=== PATIENT | female | born 1970 | race Caucasian/White ===

== ENCOUNTER 2016-05-27 15:04 | Inpatient (IN) | payer BC ==
--- NOTE | 2016-05-27 15:46 | C.PDOC ---
History Of Present Illness 46 y/o F c no PMHx p/w cough x 3 weeks. Cough nonproductive, associated with body aches, rhinorrhea, headache. Patient finished course of Levofloxacin as outpatient but no improvement. Instructed to come to ER for further evaluation. Time Seen by Provider: 05/27/16 15:41 Chief Complaint (Nursing): Shortness Of Breath Past Medical History Reviewed: Historical Data, Nursing Documentation, Vital Signs Vital Signs: Last Vital Signs Temp 98.1 F 05/27/16 15:37 Pulse 113 H 05/27/16 15:37 Resp 22 05/27/16 15:37 BP 127/84 05/27/16 15:37 Pulse Ox 97 05/27/16 16:52 - Medical History PMH: No Chronic Diseases Other Surgeries: tubal ligation Family History: States: Unknown Family Hx - Social History Hx Tobacco Use: No Hx Alcohol Use: No Hx Substance Use: No Review Of Systems Except As Marked, All Systems Reviewed And Found Negative. Constitutional: Negative for: Fever Cardiovascular: Negative for: Chest Pain Physical Exam - Physical Exam Additional Physical Exam Comments: Constitutional: No acute distress. Head: Normocephalic. Atraumatic. Eyes: PERRL. ENT: Moist mucous membranes. Neck: Supple. Cardiovascular: Tachycardic. Radial pulse 2+ bilaterally. Chest: No tenderness. Respiratory: Rhonchi bilaterally. GI: Soft. Nontender. Nondistended. Back: No CVA tenderness. Musculoskeletal: No tenderness or swelling of extremities. Skin: No rash. Neurologic: Alert, no focal deficit. ED Course And Treatment - Laboratory Results Result Diagrams: 05/27/16 17:08 05/27/16 17:08 O2 Sat by Pulse Oximetry: 97 (ra) Pulse Ox Interpretation: Normal Medical Decision Making Medical Decision Making: Chest X-Ray, Read by Yuliet Ambrocio MD: FINDINGS: Examination limited by habitus and patient obliquity. The patient's chin obscures evaluation of the right lung apex. LUNGS: No focal consolidation. Please note that chest x-ray has limited sensitivity for the detection of pulmonary masses. PLEURA: No significant pleural effusion identified. No definite pneumothorax . CARDIOVASCULAR: The cardiomediastinal silhouette appears within normal limits of size. OSSEOUS STRUCTURES: No acute osseous abnormality identified. VISUALIZED UPPER ABDOMEN: Unremarkable. OTHER FINDINGS: None. IMPRESSION: No focal consolidation, significant pleural effusion, or definite pneumothorax identified. Albuterol administered without improvement. Started on Ceftriaxone and azithromycin. Dr. Shafer recommends admission to his service for respiratory infection, failure of outpatient therapy, clinical pneumonia. Disposition Discussed With : Chris Shafer Jr. Doctor Will See Patient In The: Hospital - Disposition Disposition: HOSPITALIZED Disposition Time: 17:30 Condition: GUARDED - POA Core Measure Indicators: Pneumonia - Clinical Impression Clinical Impression: Pneumonia
[2016-05-27] MEDS ORDERED: Sodium Chloride 0.9% 1,000 ML IV STA (16:06)
[2016-05-27] MEDS ORDERED: Albuterol-Ipratrop 3 mg / 0.5 (3 ml) UD IH STA (16:07)
--- NOTE | 2016-05-27 16:33 | RAD ---
HISTORY: cough, r/o PNA COMPARISON: None available. TECHNIQUE: Chest PA and lateral FINDINGS: Examination limited by habitus and patient obliquity. The patient's chin obscures evaluation of the right lung apex. LUNGS: No focal consolidation. Please note that chest x-ray has limited sensitivity for the detection of pulmonary masses. PLEURA: No significant pleural effusion identified. No definite pneumothorax . CARDIOVASCULAR: The cardiomediastinal silhouette appears within normal limits of size. OSSEOUS STRUCTURES: No acute osseous abnormality identified. VISUALIZED UPPER ABDOMEN: Unremarkable. OTHER FINDINGS: None. IMPRESSION: No focal consolidation, significant pleural effusion, or definite pneumothorax identified.
[2016-05-27 17:12] LABS: BASO % 0.1 % (0.0-2.0); EOS # 0.2 K/uL (0.0-0.7); EOS % 3.4 % (0.0-4.0); HEMATOCRIT 41.3 % (34.0-47.0); LYMPH % 27.3 % (20.0-40.0); MEAN CELL VOLUME 86.3 fL (81.0-99.0); MEAN CORPUSCULAR HEMOGLOBIN 28.7 pg (27.0-31.0); MEAN CORPUSCULAR HGB CONC 33.2 g/dL (33.0-37.0); MEAN PLATELET VOLUME 8.9 fL (7.2-11.7); MONO # 0.7 K/uL (0.0-0.8); MONO % 9.7 % (0.0-10.0); RED CELL DISTRIBUTION WIDTH 14.8 % (11.5-14.5); WHITE BLOOD COUNT 7.2 K/uL (4.8-10.8)
[2016-05-27] MEDS ORDERED: Sodium Chloride 0.9% 1,000 ML ONE (17:14)
[2016-05-27] MEDS ORDERED: Albuterol-Ipratrop 3 mg / 0.5 (3 ml) UD ONE (17:19)
[2016-05-27 17:20] LABS: CHLORIDE 99 mmol/L (98-107)
[2016-05-27 17:21] LABS: POTASSIUM 4.2 mmol/L (3.6-5.2); SODIUM 134 mmol/L (132-148)
[2016-05-27 17:23] LABS: ALB/GLOB RATIO 1.1 (1.0-2.1); ALKALINE PHOSPHATASE 79 U/L (38-126); AST/SGOT 37 U/L (14-36); BILIRUBIN,TOTAL 0.8 mg/dL (0.2-1.3); BLOOD UREA NITROGEN 12 mg/dL (7-17); CARBON DIOXIDE 23 mmol/L (22-30); GFR AFRICAN-AMERICAN > 60; GLUCOSE,RANDOM 108 mg/dL (65-105); TOTAL PROTEIN 7.4 g/dL (6.3-8.3)
[2016-05-27 17:24] LABS: ALT/SGPT 32 U/L (9-52); CALCIUM 9.4 mg/dl (8.6-10.4)
[2016-05-27] MEDS ORDERED: Azithromycin 500 MG in Sodium Chloride 0.9% 250 ML IVPB STA (17:41)
[2016-05-27] MEDS ORDERED: cefTRIAXone IV 1 gm in Dextros 50 ML IVPB ONE (17:51)
[2016-05-27] MEDS: Fluticasone-Salmeterol 250-50mcg Diskus INH SCH (19:51)
--- NOTE | 2016-05-27 19:51 | CP.PCM.HP ---
History of Present Illness - History of Present Illness History of Present Illness: Internal medicine H & P for Dr. Citlalli Tolbert, PGY-1 Pt S & E at bedside. 46F w/PMH sig for Chronic UTIs admitted to hospital after failing outpatient treatment for acute bronchitis symptoms of cough, fevers, chills x 3 wks. Pt reports flying to [place] approx 1 mo ago, after returning home pt was not feeling well- went to PMD - given Levaquin and Symbicort without relief of symptoms. Pt reports symptoms continued, was referred to ED by PMD for further medical intervention. Admits to non productive cough, subjective fevers, chills , diaphoresis, headache, hoarse voice, poor appetite, myaglais, urinary incontinence with cough, sinus congestion. Denies N/V, CP, abdominal pain, sore throat, changes in vision, changes in bladder or bowel habits, hematuria, hematochezia, numbness or tingling of lower extremities, rashes, rhinorrhea. PMH: Chronic UTIs, hx sepsis, borderline DM PSH: uterine ablation due to AUB, amenorrhea x 3 yrs All: Denies SH: Admits to ETOH use #1 drink/6 mos, Denies tobacco/illicit drug use PMD: Soni Present on Admission - Present on Admission Any Indicators Present on Admission: No History of DVT/PE: No History of Uncontrolled Diabetes: No Urinary Catheter: No Decubitus Ulcer Present: No Review of Systems - Review of Systems All systems: reviewed and no additional remarkable complaints except - Constitutional Constitutional: Chills, Fever, Headache, Lethargy, Malaise, Weakness - EENT Eyes: absent: Change in Vision, Diplopia Ears: absent: Dizziness Nose/Mouth/Throat: Nasal Congestion, Sinus Pain, Change in Voice, Hoarsness. absent: Sore Throat - Cardiovascular Cardiovascular: absent: Chest Pain, Leg Edema, Palpitations - Respiratory Respiratory: Cough, Chest Congestion, Excessive Mucous Production, Change in Mucous Color. absent: Wheezing - Gastrointestinal Gastrointestinal: Vomiting. absent: Abdominal Pain, Constipation, Diarrhea, Hematemesis, Hematochezia, Nausea - Genitourinary Genitourinary: Urinary Incontinence. absent: Change in Urinary Stream, Dysuria , Hematuria - Reproductive: Female Reproductive:Female: Amenorrhea - Musculoskeletal Musculoskeletal: Myalgias. absent: Numbness, Tingling - Integumentary Integumentary: absent: Rash - Neurological Neurological: Headaches, Weakness. absent: Dizziness, Numbness, Tingling Past Patient History - Infectious Disease Hx of Infectious Diseases: None - Past Social History Smoking Status: Never Smoked - PSYCHIATRIC Hx Substance Use: No - SURGICAL HISTORY Hx Surgeries: Yes Hx Tubal Ligation: Yes Meds Allergies/Adverse Reactions: Allergies Allergy/AdvReac Type Severity Reaction Status Date / Time No Known Allergies Allergy Verified 05/27/16 15:32 Physical Exam - Constitutional Appears: Non-toxic, No Acute Distress - Head Exam Head Exam: ATRAUMATIC, NORMAL INSPECTION, NORMOCEPHALIC - Eye Exam Eye Exam: EOMI, Normal appearance, PERRL Pupil Exam: NORMAL ACCOMODATION, PERRL - ENT Exam ENT Exam: Mucous Membranes Moist, Normal Exam - Neck Exam Neck exam: Positive for: Full Rom, Normal Inspection. Negative for: Lymphadenopathy, Tenderness - Respiratory Exam Respiratory Exam: Wheezes (mild B/L), NORMAL BREATHING PATTERN. absent: Accessory Muscle Use, Chest Wall Tenderness, Decreased Breath Sounds, Clear to Auscultation Bilateral, Rales, Rhonchi, Respiratory Distress, Stridor Additional comments: getting breathing treatment - Cardiovascular Exam Cardiovascular Exam: Tachycardia, +S1, +S2 - GI/Abdominal Exam GI & Abdominal Exam: Normal Bowel Sounds. absent: Distended (obese), Firm, Guarding, Hernia, Tenderness - Extremities Exam Extremities exam: Positive for: full ROM, normal inspection. Negative for: pedal edema, tenderness - Back Exam Back exam: FULL ROM, NORMAL INSPECTION. absent: paraspinal tenderness, tenderness - Neurological Exam Neurological exam: Alert, CN II-XII Intact, Oriented x3 - Psychiatric Exam Psychiatric exam: Normal Affect, Normal Mood - Skin Skin Exam: Diaphoretic, Intact, Normal Color, Warm Results - Vital Signs Recent Vital Signs: Last Vital Signs Temp 98.1 F 05/27/16 18:56 Pulse 106 H 05/27/16 18:56 Resp 20 05/27/16 18:56 BP 97/61 L 05/27/16 18:56 Pulse Ox 96 05/27/16 18:56 - Labs Result Diagrams: 05/27/16 17:08 05/27/16 17:08 Assessment & Plan - Assessment and Plan (Free Text) Assessment: Acute bronchitis Advair disk 250/50 BID Azithromycin Rocephin Ibuprofen PRN pain Tylenol PRN fever Zofran PRN nausea Solu-medrol 40mg IVP Q8H Duonebs NS@100 FU CXR in AM FU Blood cxr FU urine cxr O2 via NC PRN FU Influenza FU EKG Pulm consult- Brian hx chronic UTIs FU U/A FU urine cxr GI/DVT ppx SCDs Heparin Pepcid Dispo Admit to med surg [facility]HD VS Q4H OOBTC Activity as tolerated DW attending - Date & Time Date: 05/27/16 Time: 05:00 Decision To Admit - Pt Status Changed To: Hospital Disposition Of: Observation - . Bed Request Type: Regular Admitting Physician: Chris Shafer Jr.
[2016-05-27] MEDS: Albuterol-Ipratrop 3 mg / 0.5 (3 ml) UD INH SCH (19:55)
[2016-05-27] MEDS: Sodium Chloride 0.9% 1,000 ML IV SCH (20:10)
[2016-05-27] MEDS ORDERED: Promethazine/Cod 6.25mg-10mg/5ml Syr UD PO ONE (21:00)
[2016-05-27] MEDS: MethylPREDNISolone 40 mg Vial IVP SCH (21:57)
[2016-05-28] MEDS: Albuterol-Ipratrop 3 mg / 0.5 (3 ml) UD INH SCH ×4 (01:10→19:52)
[2016-05-28] MEDS: MethylPREDNISolone 40 mg Vial IVP SCH ×3 (05:00→22:17)
[2016-05-28] MEDS: Sodium Chloride 0.9% 1,000 ML IV SCH (05:01)
[2016-05-28 07:21] LABS: RBC URINE 13 /hpf (0-3); URINE BILIRUBIN NEGATIVE (NEGATIVE); URINE BLOOD 2+ (NEGATIVE); URINE COLOR Yellow (YELLOW); URINE GLUCOSE (UA) 1+ mg/dL (Normal); URINE KETONE NEGATIVE (NEGATIVE); URINE LEUKOCYTE ESTERASE NEG Leu/uL (Negative); URINE PROTEIN NEGATIVE (NEGATIVE); URINE UROBILINOGEN NORMAL mg/dL (0.2-1.0); WBC URINE 1 /hpf (0-5)
[2016-05-28 07:31] LABS: BASO % 0.6 % (0.0-2.0); EOS % 0.1 % (0.0-4.0); HEMATOCRIT 39.9 % (34.0-47.0); LYMPH % 22.7 % (20.0-40.0); MEAN CELL VOLUME 86.7 fL (81.0-99.0); MEAN CORPUSCULAR HEMOGLOBIN 28.4 pg (27.0-31.0); MEAN CORPUSCULAR HGB CONC 32.8 g/dL (33.0-37.0); MEAN PLATELET VOLUME 9.2 fL (7.2-11.7); MONO # 0.1 K/uL (0.0-0.8); MONO % 3.3 % (0.0-10.0); NRBC % 0.1 % (0.0-2.0); RED CELL DISTRIBUTION WIDTH 14.9 % (11.5-14.5); WHITE BLOOD COUNT 4.4 K/uL (4.8-10.8)
[2016-05-28] MEDS: Fluticasone-Salmeterol 250-50mcg Diskus INH SCH (07:32)
[2016-05-28 07:57] LABS: CHLORIDE 103 mmol/L (98-107)
[2016-05-28 07:58] LABS: SODIUM 135 mmol/L (132-148)
[2016-05-28 07:59] LABS: POTASSIUM 4.5 mmol/L (3.6-5.2)
[2016-05-28 08:01] LABS: AST/SGOT 28 U/L (14-36); BILIRUBIN,TOTAL 0.6 mg/dL (0.2-1.3); CARBON DIOXIDE 20 mmol/L (22-30); GFR AFRICAN-AMERICAN > 60
[2016-05-28 08:02] LABS: ALB/GLOB RATIO 1.1 (1.0-2.1); ALKALINE PHOSPHATASE 82 U/L (38-126); ALT/SGPT 31 U/L (9-52); BLOOD UREA NITROGEN 12 mg/dL (7-17); CALCIUM 8.8 mg/dl (8.6-10.4); GLUCOSE,RANDOM 175 mg/dL (65-105)
--- NOTE | 2016-05-28 10:05 | CP.PCM.PN ---
<EmeliaJon - Last Filed: 05/28/16 16:42> Subjective - Date & Time of Evaluation Date of Evaluation: 05/28/16 Time of Evaluation: 07:20 - Subjective Subjective: PGY-1 Medicine Progress Note for Dr. Shafer Patient seen and examined at bedside. No acute event overnight. Patient resting in bed comfortably. Patient reported that her breath has improved significantly since yesterday but still complaining of cough. She also reported pain in lower back radiating to bilateral flanks. She stated that it is from the bed. Patient is tolerating diet. Denied fever/chills, cp, sob, palpitations, abd pain, n/v/d. Objective - Vital Signs/Intake and Output Vital Signs (last 24 hours): Temp Pulse Resp BP Pulse Ox 98.3 F 90 20 132/74 95 05/28/16 07:31 05/28/16 07:31 05/28/16 07:31 05/28/16 07:31 05/28/16 07:31 Intake and Output: 05/28/16 05/28/16 06:59 18:59 Intake Total 550 Balance 550 - Medications Medications: Current Medications Acetaminophen (Tylenol 325mg Tab) 650 mg PO Q6 PRN PRN Reason: Fever >100.4 F Albuterol/Ipratropium (Duoneb 3 Mg/0.5 Mg (3 Ml) Ud) 3 ml INH RQ6 [facility] Last Admin: 05/28/16 07:32 Dose: Not Given Famotidine (Pepcid) 20 mg PO BID [facility] Last Admin: 05/27/16 20:09 Dose: 20 mg Heparin Sodium (Porcine) (Heparin) 5,000 units SC Q8 [facility] Last Admin: 05/28/16 05:01 Dose: 5,000 units Sodium Chloride (Sodium Chloride 0.9%) 1,000 mls @ 100 mls/hr IV .Q10H [facility] Last Admin: 05/28/16 05:01 Dose: Not Given Azithromycin 500 mg/ Sodium (Chloride) 250 mls @ 250 mls/hr IVPB DAILY [facility] Ceftriaxone Sodium 1 gm/ (Sodium Chloride) 100 mls @ 100 mls/hr IVPB DAILY [facility] Ibuprofen (Motrin Tab) 400 mg PO Q6 PRN PRN Reason: Pain, moderate (4-7) Last Admin: 05/28/16 05:06 Dose: 400 mg Methylprednisolone (Solu-Medrol) 40 mg IVP Q8 [facility] Last Admin: 05/28/16 05:00 Dose: 40 mg Ondansetron HCl (Zofran Inj) 4 mg IVP Q6 PRN PRN Reason: Nausea/Vomiting Pneumococcal Polyvalent Vaccine (Pneumovax 23 Vaccine) 0.5 ml IM .ONCE ONE Stop: 05/29/16 10:01 Fluticasone/Salmeterol (Advair Diskus 250/50) 1 puff INH RQ12 [facility] Last Admin: 05/28/16 07:32 Dose: Not Given - Labs Labs: 05/28/16 07:10 05/28/16 07:10 APTT 28 SECONDS (21-34) 05/28/16 07:10 - Constitutional Appears: Non-toxic, No Acute Distress - Head Exam Head Exam: ATRAUMATIC, NORMOCEPHALIC - Eye Exam Eye Exam: EOMI, Normal appearance Pupil Exam: PERRL - ENT Exam ENT Exam: Mucous Membranes Moist - Neck Exam Neck Exam: Normal Inspection - Respiratory Exam Respiratory Exam: Clear to Ausculation Bilateral, NORMAL BREATHING PATTERN. absent: Accessory Muscle Use, Respiratory Distress - Cardiovascular Exam Cardiovascular Exam: RRR, +S1, +S2 - GI/Abdominal Exam GI & Abdominal Exam: Soft, Normal Bowel Sounds. absent: Tenderness - Extremities Exam Extremities Exam: Normal Capillary Refill. absent: Calf Tenderness - Back Exam Back Exam: tenderness (paraspinal musculature radiating to flank) - Neurological Exam Neurological Exam: Alert, Awake, CN II-XII Intact, Oriented x3 - Psychiatric Exam Psychiatric exam: Normal Affect, Normal Mood - Skin Skin Exam: Dry, Intact, Normal Color, Warm. absent: Cyanosis Assessment and Plan - Assessment and Plan (Free Text) Plan: 1. Acute bronchitis Advair disk 250/50 BID Azithromycin 500 mg IVPB Q24H Rocephin 1 gm IVPB daily Ibuprofen PRN pain Tylenol PRN fever Zofran PRN nausea Solu-medrol 40mg IVP Q8H Duonebs 3 mL IH Q6H NS 100 cc/hr Blood culture urine culture O2 via NC PRN Influenza negative EKG unremarkable Pulm consult, Dr. Torres, help appreciated Promethazine/Codeine 5 mL PO Q4H PRN cough 2. History of Chronic UTI UA: 2+ blood, 13 RBC urine culture 3. Prophylactic Measures SCDs Heparin 5,000 units SC Q8H Pepcid 20 mg PO BID [facility] OOBTC Activity as tolerated <Chris Shafer Jr. - Last Filed: 05/30/16 16:52> Objective - Vital Signs/Intake and Output Vital Signs (last 24 hours): Temp Pulse Resp BP Pulse Ox 97.9 F 82 20 130/84 93 L 05/30/16 15:00 05/30/16 15:00 05/30/16 15:00 05/30/16 15:00 05/30/16 15:00 Intake and Output: 05/30/16 05/30/16 06:59 18:59 Intake Total 2049 Balance 2049 - Medications Medications: Current Medications Acetaminophen (Tylenol 325mg Tab) 650 mg PO Q6 PRN PRN Reason: Fever >100.4 F Albuterol/Ipratropium (Duoneb 3 Mg/0.5 Mg (3 Ml) Ud) 3 ml INH RQ6 [facility] Last Admin: 05/30/16 13:22 Dose: 3 ml Famotidine (Pepcid) 20 mg PO BID [facility] Last Admin: 05/30/16 09:18 Dose: 20 mg Heparin Sodium (Porcine) (Heparin) 5,000 units SC Q8 [facility] Last Admin: 05/30/16 13:37 Dose: 5,000 units Sodium Chloride (Sodium Chloride 0.9%) 1,000 mls @ 100 mls/hr IV .Q10H [facility] Last Admin: 05/30/16 06:12 Dose: 100 mls/hr Azithromycin 500 mg/ Sodium (Chloride) 250 mls @ 250 mls/hr IVPB DAILY [facility] Last Admin: 05/30/16 10:54 Dose: 250 mls/hr Ceftriaxone Sodium 1 gm/ (Sodium Chloride) 100 mls @ 100 mls/hr IVPB DAILY [facility] Last Admin: 05/30/16 09:50 Dose: 100 mls/hr Ibuprofen (Motrin Tab) 400 mg PO Q6 PRN PRN Reason: Pain, moderate (4-7) Last Admin: 05/28/16 05:06 Dose: 400 mg Methylprednisolone (Solu-Medrol) 40 mg IVP Q8 [facility] Last Admin: 05/30/16 13:37 Dose: 40 mg Montelukast Sodium (Singulair) 10 mg PO HS [facility] Last Admin: 05/29/16 21:41 Dose: 10 mg Ondansetron HCl (Zofran Inj) 4 mg IVP Q6 PRN PRN Reason: Nausea/Vomiting Promethazine HCl/Codeine (Phenergan/Codeine Oral Syrup) 5 ml PO Q4 PRN PRN Reason: Cough Last Admin: 05/30/16 13:01 Dose: 5 ml Fluticasone/Salmeterol (Advair Diskus 250/50) 1 puff INH RQ12 [facility] Last Admin: 05/30/16 13:22 Dose: Not Given - Labs Labs: 05/30/16 06:59 05/30/16 06:59 APTT 28 SECONDS (21-34) 05/28/16 07:10 Attending/Attestation - Attestation I have personally seen and examined this patient.: Yes I have fully participated in the care of the patient.: Yes I have reviewed all pertinent clinical information, including history, physical exam and plan: Yes Notes (Text): 05/30/16 16:52 Patient seen and examined. Reviewed resident note and agree with plan of care and findings.
--- NOTE | 2016-05-28 10:13 | RAD ---
HISTORY: pneumonia COMPARISON: No prior. TECHNIQUE: Chest PA and lateral FINDINGS: LUNGS: There is mild pulmonary hyperinflation and peribronchial cuffing with increased lung markings. There is no focal consolidation. PLEURA: No significant pleural effusion identified. No pneumothorax apparent. CARDIOVASCULAR: Normal. OSSEOUS STRUCTURES: No significant abnormalities. VISUALIZED UPPER ABDOMEN: Normal. OTHER FINDINGS: None. IMPRESSION: Findings may represent nonspecific viral/atypical pneumonitis. No lobar pneumonia.
[2016-05-28] MEDS: Promethazine/Cod 6.25mg-10mg/5ml Syr UD PO PRN ×3 (10:38→22:17)
[2016-05-28] MEDS: Azithromycin 500 MG in Sodium Chloride 0.9% 250 ML IVPB SCH (10:40)
--- NOTE | 2016-05-28 13:22 | CP.PCM.CON ---
History of Present Illness - History of Present Illness History of Present Illness: Pt 46yo F with a PMH of recurrent UTI, sepsis, DM, amenorrhea, and uterine ablation due to heavy bleeding presents with cough, fever, and chills that have persisted for three weeks and failed to resolve with medical management (pt compliant taking levaquin and symbacort). Recent history includes a recent flight to [place] just prior to these symptoms. Reason for consult acute bronchitis resistant to treatment. Pt seen and examined at bedside stating that she feels better but complains of hoarseness, chest pain with breathing, headache with cough, upper back pain in the bilateral scapular region, cough with productive green sputum, sinus congestion, reduced appetite and thirst, leg redness and calf swelling. Pt denies chest congestion, wheezing, changes, abdominal pain, nausea, vomiting , bowl changes. Denied use of control and exposure to allergens. PMH/PSH: ecurrent UTI, sepsis, DM, amenorrhea, and uterine ablation Smoking: never smoked Review of Systems - Constitutional Constitutional: As Per HPI - EENT Eyes: As Per HPI Ears: As Per HPI Nose/Mouth/Throat: As Per HPI - Breasts Breasts: As Per HPI - Cardiovascular Cardiovascular: As Per HPI - Respiratory Respiratory: As Per HPI - Gastrointestinal Gastrointestinal: As Per HPI - Genitourinary Genitourinary: As Per HPI - Reproductive: Female Reproductive:Female: As Per HPI - Menstruation Menstruation: As Per HPI - Musculoskeletal Musculoskeletal: As Per HPI - Integumentary Integumentary: As Per HPI - Neurological Neurological: As Per HPI - Psychiatric Psychiatric: As Per HPI - Endocrine Endocrine: As Per HPI - Hematologic/Lymphatic Hematologic: As Per HPI Past Patient History - Infectious Disease Hx of Infectious Diseases: None - Past Social History Smoking Status: Never Smoked - MUSCULOSKELETAL/RHEUMATOLOGICAL Hx Falls: No - PSYCHIATRIC Hx Substance Use: No - SURGICAL HISTORY Hx Surgeries: Yes Hx Cholecystectomy: Yes (2001) Hx Tubal Ligation: Yes (1997) Other/Comment: ovarian cyst biopsy - ANESTHESIA Hx Anesthesia: Yes Hx Anesthesia Reactions: No Hx Malignant Hyperthermia: No Has any member of the family had a problem w/ anesthesia?: No Meds Allergies/Adverse Reactions: Allergies Allergy/AdvReac Type Severity Reaction Status Date / Time No Known Allergies Allergy Verified 05/27/16 15:32 - Medications Medications: Current Medications Acetaminophen (Tylenol 325mg Tab) 650 mg PO Q6 PRN PRN Reason: Fever >100.4 F Albuterol/Ipratropium (Duoneb 3 Mg/0.5 Mg (3 Ml) Ud) 3 ml INH RQ6 [facility] Last Admin: 05/28/16 07:32 Dose: Not Given Famotidine (Pepcid) 20 mg PO BID [facility] Last Admin: 05/28/16 10:39 Dose: 20 mg Heparin Sodium (Porcine) (Heparin) 5,000 units SC Q8 [facility] Last Admin: 05/28/16 05:01 Dose: 5,000 units Sodium Chloride (Sodium Chloride 0.9%) 1,000 mls @ 100 mls/hr IV .Q10H [facility] Last Admin: 05/28/16 05:01 Dose: Not Given Azithromycin 500 mg/ Sodium (Chloride) 250 mls @ 250 mls/hr IVPB DAILY [facility] Last Admin: 05/28/16 10:40 Dose: 250 mls/hr Ceftriaxone Sodium 1 gm/ (Sodium Chloride) 100 mls @ 100 mls/hr IVPB DAILY [facility] Last Admin: 05/28/16 10:40 Dose: 100 mls/hr Ibuprofen (Motrin Tab) 400 mg PO Q6 PRN PRN Reason: Pain, moderate (4-7) Last Admin: 05/28/16 05:06 Dose: 400 mg Methylprednisolone (Solu-Medrol) 40 mg IVP Q8 [facility] Last Admin: 05/28/16 05:00 Dose: 40 mg Ondansetron HCl (Zofran Inj) 4 mg IVP Q6 PRN PRN Reason: Nausea/Vomiting Pneumococcal Polyvalent Vaccine (Pneumovax 23 Vaccine) 0.5 ml IM .ONCE ONE Stop: 05/29/16 10:01 Promethazine HCl/Codeine (Phenergan/Codeine Oral Syrup) 5 ml PO Q4 PRN PRN Reason: Cough Last Admin: 05/28/16 10:38 Dose: 5 ml Fluticasone/Salmeterol (Advair Diskus 250/50) 1 puff INH RQ12 [facility] Last Admin: 05/28/16 07:32 Dose: Not Given Physical Exam - Constitutional Appears: Well, No Acute Distress - Head Exam Head Exam: ATRAUMATIC, NORMOCEPHALIC - Eye Exam Eye Exam: EOMI, Normal appearance, PERRL. absent: Scleral icterus - ENT Exam ENT Exam: Mucous Membranes Moist, Normal Exam - Respiratory Exam Respiratory Exam: Clear to Auscultation Bilateral, NORMAL BREATHING PATTERN - Cardiovascular Exam Cardiovascular Exam: +S1, +S2. absent: Systolic Murmur - Extremities Exam Extremities exam: Positive for: pedal edema (+1). Negative for: normal inspection (mild redness) - Neurological Exam Neurological exam: Alert, Oriented x3 - Psychiatric Exam Psychiatric exam: Normal Affect, Normal Mood - Skin Skin Exam: Dry, Intact, Normal Color, Warm Results - Vital Signs Recent Vital Signs: Last Vital Signs Temp 98.3 F 05/28/16 07:31 Pulse 90 05/28/16 07:31 Resp 20 05/28/16 07:31 BP 132/74 05/28/16 07:31 Pulse Ox 95 05/28/16 07:31 - Labs Result Diagrams: 05/28/16 07:10 05/28/16 07:10 Labs: Laboratory Results - last 24 hr 05/28/16 05/28/16 07:04 07:10 WBC 4.4 L RBC 4.60 Hgb 13.1 Hct 39.9 MCV 86.7 MCH 28.4 MCHC 32.8 L RDW 14.9 H Plt Count 188 MPV 9.2 Neut % (Auto) 73.3 Lymph % (Auto) 22.7 Centre % (Auto) 3.3 Eos % (Auto) 0.1 Baso % (Auto) 0.6 Neut # 3.2 Lymph # 1.0 Centre # 0.1 Eos # 0.0 Baso # 0.0 APTT 28 Sodium 135 Potassium 4.5 Chloride 103 Carbon Dioxide 20 L Anion Gap 17 BUN 12 Creatinine 0.6 L Est GFR ( Amer) > 60 Est GFR (Non-Af Amer) > 60 Random Glucose 175 H Calcium 8.8 Total Bilirubin 0.6 AST 28 ALT 31 Alkaline Phosphatase 82 Total Protein 7.0 Albumin 3.6 Globulin 3.4 Albumin/Globulin Ratio 1.1 Urine Color Yellow Urine Clarity Clear Urine pH 6.0 Ur Specific [place] 1.012 Urine Protein Negative Urine Glucose (UA) 1+ Urine Ketones Negative Urine Blood 2+ H Urine Nitrate Negative Urine Bilirubin Negative Urine Urobilinogen Normal Ur Leukocyte Esterase Neg Urine WBC (Auto) 1 Urine RBC (Auto) 13 H Ur Squamous Epith Cells < 1 Urine HCG, Qual Negative Assessment & Plan (1) Bronchitis Assessment and Plan: 05-28-16 CXR: may represent nonspecific viral/atypical pneumonitis findings, no lobar pneumonia 05-27-16 CXR: no focal consolidation, plural effusions, or pnumothorax CT sinus ordered; will follow results IGE ordered; will follow results CBC with differential; will follow Eosinphil count results Continue Advair, Duoneb, Solumedrol, and Antibiotics Consider sleep study Status: Acute (2) Allergic rhinitis Status: Acute
--- NOTE | 2016-05-28 18:10 | CT ---
PROCEDURE: CTA of the chest dated 05/28/2016. COMPARISON: Comparison made with plain film radiographs of the chest obtained earlier same day. TECHNIQUE: Technique: CT angiography of the chest performed of in standard fashion following intravenous injection of approximately 100 cc of of Visipaque 320 contrast material employing CTA protocol. . Coronal and sagittal reformats, and well as rotating MIP images of the vessels generated at the workstation. Radiation dose: Total exam DLP = 574.81 mGy-cm. This CT exam was performed using one or more of the following dose reduction techniques: Automated exposure control, adjustment of the mA and/or kV according to patient size, and/or use of iterative reconstruction mary anne technique. . Findings: The study somewhat limited due to suboptimal bolus injection enhancing the pulmonary arterial circulation as well as very large body habitus with resultant crossing streak and beam hardening artifact. Findings: The visualized pulmonary trunk, right and left main lobar and proximal segmental branches of the pulmonary arteries appear relatively well opacified with no definitive filling defects seen to suggest acute central pulmonary embolus. Note that the distal segmental and subsegmental branches are poorly delineated. Pulmonary trunk measures approximately 2.9 cm. Heart size within range of normal. No significant pericardial effusion. There are a few tiny nonspecific mediastinal lymph nodes none of which appear pathologically enlarged. No significant hilar adenopathy. Central airways are midline and patent. No endobronchial lesion seen. Than Evaluation of the lung parenchyma reveals minimal passive/dependent type atelectasis within the posterior lung zones. No focal consolidation or effusion. No evidence of pneumothorax. There is an approximately 6.6 mm rounded nodular density posteromedial aspect left lung base. Second tiny 5 mm nodular density right posterior sulcus. Follow-up CT scan according to 2017 Fleischner criteria; follow-up CT scan 6-12 months then, consider repeat CT scan 18-24 months low risk patients. . In low risk patients. Follow-up CT scan in 3/6 months addendum, 18-24 months in high risk patients. Minor multilevel degenerative spondylosis of the thoracic spine. Thyroid gland is not well delineated due to crossing streak and beam hardening artifact. Metallic clips in the gallbladder fossa consistent with cholecystectomy. The remaining visualized upper abdominal structures appear grossly unremarkable. Impression: Limited study as described. No evidence of acute central pulmonary embolus. 6.6 mm nodule left posteromedial lung base on. Followup CT scan as per Fleischner criteria outlined above.
--- NOTE | 2016-05-28 18:29 | CT ---
PROCEDURE: CT scan of the sinuses dated 05/28/2016 HISTORY: Chronic cough TECHNIQUE: Contiguous helical/ transaxial CT images of the paranasal sinuses were obtained. Coronal and sagittal reformats were generated. Radiation dose: Total exam DLP = 551.59 mGy-cm. This CT exam was performed using one or more of the following dose reduction techniques: Automated exposure control, adjustment of the mA and/or kV according to patient size, and/or use of iterative reconstruction technique. Findings: Paranasal sinuses are well-developed. No fluid levels seen to suggest acute sinusitis. There is mild mucosal thickening within both maxillary antrum with moderate mucosal thickening in the ethmoid air complex extending superiorly into the frontal sinus more so on the left than the right. Mild mucosal thickening also noted within the sphenoid sinus right-side of which is more prominent and partially aerosolized in appearance. The left ostiomeatal complex is patent. Right ostiomeatal complex appears occluded. Frontal recesses also appear occluded. Sphenoethmoidal recesses appear narrowed and/or occluded proximally. The distal a sphenoid ethmoidal recesses are also narrowed on the left. Osseous structures are intact without evidence of destructive or sclerotic change. The mastoid air complexes are well-developed and currently well-aerated. Questionable mild exophthalmos. Orbits and contents otherwise unremarkable. Impression: No evidence of acute sinusitis. Mucosal thickening present within wall the paranasal sinuses most pronounced in the ethmoid air complex. See above discussion for additional findings and details.
[2016-05-29] MEDS: Sodium Chloride 0.9% 1,000 ML IV SCH ×5 (00:30→21:42)
[2016-05-29] MEDS: Albuterol-Ipratrop 3 mg / 0.5 (3 ml) UD INH SCH ×4 (01:10→20:21)
[2016-05-29] MEDS: Promethazine/Cod 6.25mg-10mg/5ml Syr UD PO PRN ×4 (02:48→21:49)
[2016-05-29] MEDS: MethylPREDNISolone 40 mg Vial IVP SCH ×3 (06:37→21:41)
[2016-05-29 08:19] LABS: BASO % 0.3 % (0.0-2.0); LYMPH # 2.2 K/uL (1.0-4.3); LYMPH % 22.1 % (20.0-40.0); MEAN CELL VOLUME 87.2 fL (81.0-99.0); MEAN CORPUSCULAR HEMOGLOBIN 28.3 pg (27.0-31.0); MEAN CORPUSCULAR HGB CONC 32.4 g/dL (33.0-37.0); MEAN PLATELET VOLUME 9.1 fL (7.2-11.7); MONO # 0.7 K/uL (0.0-0.8); MONO % 6.5 % (0.0-10.0); NRBC % 0.1 % (0.0-2.0); RED CELL DISTRIBUTION WIDTH 15.3 % (11.5-14.5)
[2016-05-29 08:23] LABS: CHLORIDE 107 mmol/L (98-107)
[2016-05-29 08:24] LABS: POTASSIUM 4.3 mmol/L (3.6-5.2); SODIUM 138 mmol/L (132-148)
[2016-05-29 08:26] LABS: GFR AFRICAN-AMERICAN > 60
[2016-05-29 08:27] LABS: ALKALINE PHOSPHATASE 68 U/L (38-126); ALT/SGPT 24 U/L (9-52); AST/SGOT 17 U/L (14-36); BILIRUBIN,TOTAL 0.4 mg/dL (0.2-1.3); BLOOD UREA NITROGEN 11 mg/dL (7-17); CALCIUM 9.1 mg/dl (8.6-10.4); CARBON DIOXIDE 22 mmol/L (22-30); GLUCOSE,RANDOM 132 mg/dL (65-105)
[2016-05-29] MEDS ORDERED: Pneumococcal 23-Valent Vaccine IM ONE ×2 (10:00→11:15)
[2016-05-29] MEDS: Fluticasone-Salmeterol 250-50mcg Diskus INH SCH ×2 (10:46→20:22)
[2016-05-29] MEDS: Azithromycin 500 MG in Sodium Chloride 0.9% 250 ML IVPB SCH (11:46)
--- NOTE | 2016-05-29 13:45 | CP.PCM.PN ---
Subjective - Date & Time of Evaluation Date of Evaluation: 05/29/16 Time of Evaluation: 10:40 - Subjective Subjective: Pt seen and examined at bedside breathing comfortably on RA with comment about occasion needed use of NC despite not liking it because it makes her feel dry. Pt complains of coughing in "bouts" with production of white phlegm, chest pain with breathing, incontinence with coughing, headache with coughing, hoarseness, and fatigue. Pt expressed concern about having TB and complained of night sweats but denied hemoptosis and weight loss. Pt denied cold intolerance during the day, constipation, brittle or painful hair, fevers or chills, SOB, and palpitations. Objective - Vital Signs/Intake and Output Vital Signs (last 24 hours): Temp Pulse Resp BP Pulse Ox 97.3 F L 89 20 106/68 97 05/29/16 07:00 05/29/16 07:00 05/29/16 07:00 05/29/16 07:00 05/29/16 07:00 Intake and Output: 05/29/16 05/29/16 06:59 18:59 Intake Total 1430 Balance 1430 - Medications Medications: Current Medications Acetaminophen (Tylenol 325mg Tab) 650 mg PO Q6 PRN PRN Reason: Fever >100.4 F Albuterol/Ipratropium (Duoneb 3 Mg/0.5 Mg (3 Ml) Ud) 3 ml INH RQ6 [facility] Last Admin: 05/29/16 13:28 Dose: 3 ml Famotidine (Pepcid) 20 mg PO BID [facility] Last Admin: 05/29/16 10:02 Dose: 20 mg Heparin Sodium (Porcine) (Heparin) 5,000 units SC Q8 [facility] Last Admin: 05/29/16 06:38 Dose: 5,000 units Sodium Chloride (Sodium Chloride 0.9%) 1,000 mls @ 100 mls/hr IV .Q10H [facility] Last Admin: 05/29/16 10:50 Dose: Not Given Azithromycin 500 mg/ Sodium (Chloride) 250 mls @ 250 mls/hr IVPB DAILY [facility] Last Admin: 05/29/16 11:46 Dose: 250 mls/hr Ceftriaxone Sodium 1 gm/ (Sodium Chloride) 100 mls @ 100 mls/hr IVPB DAILY [facility] Last Admin: 05/29/16 10:27 Dose: 100 mls/hr Ibuprofen (Motrin Tab) 400 mg PO Q6 PRN PRN Reason: Pain, moderate (4-7) Last Admin: 05/28/16 05:06 Dose: 400 mg Methylprednisolone (Solu-Medrol) 40 mg IVP Q8 [facility] Last Admin: 05/29/16 06:37 Dose: 40 mg Montelukast Sodium (Singulair) 10 mg PO HS [facility] Last Admin: 05/28/16 22:17 Dose: 10 mg Ondansetron HCl (Zofran Inj) 4 mg IVP Q6 PRN PRN Reason: Nausea/Vomiting Promethazine HCl/Codeine (Phenergan/Codeine Oral Syrup) 5 ml PO Q4 PRN PRN Reason: Cough Last Admin: 05/29/16 10:02 Dose: 5 ml Fluticasone/Salmeterol (Advair Diskus 250/50) 1 puff INH RQ12 [facility] Last Admin: 05/29/16 10:46 Dose: Not Given - Labs Labs: 05/29/16 08:04 05/29/16 08:04 APTT 28 SECONDS (21-34) 05/28/16 07:10 - Constitutional Appears: Well, No Acute Distress - Head Exam Head Exam: ATRAUMATIC, NORMOCEPHALIC - Respiratory Exam Respiratory Exam: Rhonchi (bilateral LL L>R), NORMAL BREATHING PATTERN. absent : Clear to Ausculation Bilateral, Prolonged Expiratory Phase, Rales, Wheezes - Cardiovascular Exam Cardiovascular Exam: +S1, +S2. absent: Murmur - Extremities Exam Extremities Exam: Pedal Edema (+1 and lower leg) - Neurological Exam Neurological Exam: Alert, Awake, Oriented x3 - Psychiatric Exam Psychiatric exam: Normal Affect, Normal Mood - Skin Skin Exam: Dry, Intact, Normal Color, Warm Assessment and Plan (1) Bronchitis Assessment & Plan: 05-28-16 CT sinus: no acute sinusitis, assorted mucosal thickenings, questionable exopthalmos 05-28-16 CT chest: no indication of pulmonary embolism, two pulmonary nodules 6.6mm and 5mm with recommendation for follow CTs 05-28-16 CXR: may represent nonspecific viral/atypical pneumonitis findings, no lobar pneumonia 05-27-16 CXR: no focal consolidation, plural effusions, or pnumothorax CBC with differential; Eosinphil count shows no elevation IGE ordered; will follow results Continue Advair, Duoneb, Solumedrol, and Antibiotics Recommend follow up CT study in 6 months to follow pulmonary nodules Consider sleep study Continue current management follow up if needed. Status: Acute (2) Allergic rhinitis Status: Acute
--- NOTE | 2016-05-29 18:04 | CP.PCM.PN ---
Subjective - Date & Time of Evaluation Date of Evaluation: 05/29/16 Time of Evaluation: 11:13 - Subjective Subjective: Pt seen and examined. Pt repors that she is feeling much better. She reports that she coughing spells but the coughing has improved from yesterday. Pt denies fever, chills, chest pain, shortness of breath, nausea, and vomiting. Objective - Vital Signs/Intake and Output Vital Signs (last 24 hours): Temp Pulse Resp BP Pulse Ox 98.0 F 96 H 21 123/76 95 05/29/16 15:00 05/29/16 15:00 05/29/16 15:00 05/29/16 15:00 05/29/16 15:00 Intake and Output: 05/29/16 05/29/16 06:59 18:59 Intake Total 1430 640 Balance 1430 640 - Medications Medications: Current Medications Acetaminophen (Tylenol 325mg Tab) 650 mg PO Q6 PRN PRN Reason: Fever >100.4 F Albuterol/Ipratropium (Duoneb 3 Mg/0.5 Mg (3 Ml) Ud) 3 ml INH RQ6 [facility] Last Admin: 05/29/16 13:28 Dose: 3 ml Famotidine (Pepcid) 20 mg PO BID [facility] Last Admin: 05/29/16 17:32 Dose: 20 mg Heparin Sodium (Porcine) (Heparin) 5,000 units SC Q8 [facility] Last Admin: 05/29/16 14:36 Dose: 5,000 units Sodium Chloride (Sodium Chloride 0.9%) 1,000 mls @ 100 mls/hr IV .Q10H [facility] Last Admin: 05/29/16 17:32 Dose: 100 mls/hr Azithromycin 500 mg/ Sodium (Chloride) 250 mls @ 250 mls/hr IVPB DAILY [facility] Last Admin: 05/29/16 11:46 Dose: 250 mls/hr Ceftriaxone Sodium 1 gm/ (Sodium Chloride) 100 mls @ 100 mls/hr IVPB DAILY [facility] Last Admin: 05/29/16 10:27 Dose: 100 mls/hr Ibuprofen (Motrin Tab) 400 mg PO Q6 PRN PRN Reason: Pain, moderate (4-7) Last Admin: 05/28/16 05:06 Dose: 400 mg Methylprednisolone (Solu-Medrol) 40 mg IVP Q8 [facility] Last Admin: 05/29/16 14:36 Dose: 40 mg Montelukast Sodium (Singulair) 10 mg PO HS [facility] Last Admin: 05/28/16 22:17 Dose: 10 mg Ondansetron HCl (Zofran Inj) 4 mg IVP Q6 PRN PRN Reason: Nausea/Vomiting Promethazine HCl/Codeine (Phenergan/Codeine Oral Syrup) 5 ml PO Q4 PRN PRN Reason: Cough Last Admin: 05/29/16 14:37 Dose: 5 ml Fluticasone/Salmeterol (Advair Diskus 250/50) 1 puff INH RQ12 [facility] Last Admin: 05/29/16 10:46 Dose: Not Given - Labs Labs: 05/29/16 08:04 05/29/16 08:04 APTT 28 SECONDS (21-34) 05/28/16 07:10 - Constitutional Appears: No Acute Distress - Head Exam Head Exam: ATRAUMATIC, NORMOCEPHALIC - Eye Exam Eye Exam: EOMI, PERRL Pupil Exam: PERRL - ENT Exam ENT Exam: Mucous Membranes Moist. absent: Mucous Membranes Dry - Neck Exam Neck Exam: Full ROM. absent: Lymphadenopathy - Respiratory Exam Respiratory Exam: Clear to Ausculation Bilateral. absent: Rales, Rhonchi, Wheezes - Cardiovascular Exam Cardiovascular Exam: +S1, +S2 - GI/Abdominal Exam GI & Abdominal Exam: Soft. absent: Tenderness - Extremities Exam Extremities Exam: Full ROM - Neurological Exam Neurological Exam: Alert, Awake, Oriented x3 - Psychiatric Exam Psychiatric exam: Normal Affect, Normal Mood - Skin Skin Exam: Normal Color, Warm Assessment and Plan - Assessment and Plan (Free Text) Assessment: Bronchitis Chest CT - 6.6 mm nodule on posteromedial aspect of left lung, follow up as per Fle[facility] cirreyia (please see full report) Afebrile, nontachycardic Advair disk 250/50 BID Azithromycin 500 mg IVPB Q24H Rocephin 1 gm IVPB daily Singulair 10 mg po hs Ibuprofen PRN pain Tylenol PRN fever Zofran PRN nausea Solu-medrol 40mg IVP Q8H Duonebs 3 mL IH Q6H NS 100 cc/hr Blood culture no growth after 24 hours urine culture O2 via NC PRN Influenza negative EKG unremarkable Pulm consult, Dr. Torres, help appreciated Promethazine/Codeine 5 mL PO Q4H PRN cough History of Chronic UTI UA: 2+ blood, 13 RBC urine culture Prophylactic Measures SCDs Heparin 5,000 units SC Q8H Pepcid 20 mg PO BID [facility] OOBTC Activity as tolerated
[2016-05-30] MEDS: Albuterol-Ipratrop 3 mg / 0.5 (3 ml) UD INH SCH ×3 (01:13→13:22)
[2016-05-30 01:44] VITALS: RESP 20
[2016-05-30] MEDS: MethylPREDNISolone 40 mg Vial IVP SCH ×2 (06:12→13:37)
[2016-05-30] MEDS: Sodium Chloride 0.9% 1,000 ML IV SCH (06:12)
[2016-05-30 07:12] LABS: BASO % 0.2 % (0.0-2.0); HEMATOCRIT 40.8 % (34.0-47.0); LYMPH # 2.6 K/uL (1.0-4.3); LYMPH % 22.4 % (20.0-40.0); MEAN CELL VOLUME 86.8 fL (81.0-99.0); MEAN CORPUSCULAR HEMOGLOBIN 27.9 pg (27.0-31.0); MEAN CORPUSCULAR HGB CONC 32.1 g/dL (33.0-37.0); MEAN PLATELET VOLUME 9.2 fL (7.2-11.7); MONO # 0.8 K/uL (0.0-0.8); MONO % 6.9 % (0.0-10.0); NRBC % 0.1 % (0.0-2.0); RED CELL DISTRIBUTION WIDTH 15.2 % (11.5-14.5); WHITE BLOOD COUNT 11.7 K/uL (4.8-10.8)
[2016-05-30 07:41] LABS: CHLORIDE 104 mmol/L (98-107); SODIUM 136 mmol/L (132-148)
[2016-05-30 07:42] LABS: POTASSIUM 4.2 mmol/L (3.6-5.2)
[2016-05-30 07:44] LABS: ALB/GLOB RATIO 1.1 (1.0-2.1); ALKALINE PHOSPHATASE 70 U/L (38-126); ALT/SGPT 22 U/L (9-52); AST/SGOT 14 U/L (14-36); BILIRUBIN,TOTAL 0.4 mg/dL (0.2-1.3); BLOOD UREA NITROGEN 13 mg/dL (7-17); CARBON DIOXIDE 23 mmol/L (22-30); GFR AFRICAN-AMERICAN > 60
[2016-05-30 07:45] LABS: CALCIUM 9.2 mg/dl (8.6-10.4); GLUCOSE,RANDOM 151 mg/dL (65-105); MAGNESIUM 2.3 mg/dL (1.6-2.3); PHOSPHOROUS 2.7 mg/dL (2.5-4.5)
[2016-05-30] MEDS: Promethazine/Cod 6.25mg-10mg/5ml Syr UD PO PRN ×2 (07:52→13:01)
--- NOTE | 2016-05-30 10:27 | CP.PCM.PN ---
Subjective - Date & Time of Evaluation Date of Evaluation: 05/30/16 Time of Evaluation: 07:20 - Subjective Subjective: Patient seen and examined. Cough and breathing much improved Denies fever or chills, denies chest pain Objective - Vital Signs/Intake and Output Vital Signs (last 24 hours): Temp Pulse Resp BP Pulse Ox 97.5 F L 84 20 126/80 97 05/30/16 08:00 05/30/16 08:00 05/30/16 08:00 05/30/16 08:00 05/30/16 08:00 Intake and Output: 05/30/16 05/30/16 06:59 18:59 Intake Total 2049 Balance 2049 - Medications Medications: Current Medications Acetaminophen (Tylenol 325mg Tab) 650 mg PO Q6 PRN PRN Reason: Fever >100.4 F Albuterol/Ipratropium (Duoneb 3 Mg/0.5 Mg (3 Ml) Ud) 3 ml INH RQ6 [facility] Last Admin: 05/30/16 07:30 Dose: 3 ml Famotidine (Pepcid) 20 mg PO BID [facility] Last Admin: 05/30/16 09:18 Dose: 20 mg Heparin Sodium (Porcine) (Heparin) 5,000 units SC Q8 [facility] Last Admin: 05/30/16 06:11 Dose: 5,000 units Sodium Chloride (Sodium Chloride 0.9%) 1,000 mls @ 100 mls/hr IV .Q10H [facility] Last Admin: 05/30/16 06:12 Dose: 100 mls/hr Azithromycin 500 mg/ Sodium (Chloride) 250 mls @ 250 mls/hr IVPB DAILY [facility] Last Admin: 05/29/16 11:46 Dose: 250 mls/hr Ceftriaxone Sodium 1 gm/ (Sodium Chloride) 100 mls @ 100 mls/hr IVPB DAILY [facility] Last Admin: 05/30/16 09:50 Dose: 100 mls/hr Ibuprofen (Motrin Tab) 400 mg PO Q6 PRN PRN Reason: Pain, moderate (4-7) Last Admin: 05/28/16 05:06 Dose: 400 mg Methylprednisolone (Solu-Medrol) 40 mg IVP Q8 [facility] Last Admin: 05/30/16 06:12 Dose: 40 mg Montelukast Sodium (Singulair) 10 mg PO HS [facility] Last Admin: 05/29/16 21:41 Dose: 10 mg Ondansetron HCl (Zofran Inj) 4 mg IVP Q6 PRN PRN Reason: Nausea/Vomiting Promethazine HCl/Codeine (Phenergan/Codeine Oral Syrup) 5 ml PO Q4 PRN PRN Reason: Cough Last Admin: 05/30/16 07:52 Dose: 5 ml Fluticasone/Salmeterol (Advair Diskus 250/50) 1 puff INH RQ12 [facility] Last Admin: 05/29/16 20:22 Dose: Not Given - Labs Labs: 05/30/16 06:59 05/30/16 06:59 APTT 28 SECONDS (21-34) 05/28/16 07:10 - Constitutional Appears: No Acute Distress - Head Exam Head Exam: ATRAUMATIC, NORMOCEPHALIC - Eye Exam Eye Exam: Normal appearance - Neck Exam Neck Exam: Normal Inspection - Respiratory Exam Respiratory Exam: Clear to Ausculation Bilateral - Cardiovascular Exam Cardiovascular Exam: REGULAR RHYTHM - GI/Abdominal Exam GI & Abdominal Exam: Soft, Normal Bowel Sounds - Extremities Exam Extremities Exam: Full ROM - Neurological Exam Neurological Exam: Alert, Oriented x3 Assessment and Plan (1) Bronchitis Assessment & Plan: Change IV steroids to by mouth prednisone Continue nebulizer treatment Awaiting for IgE level Okay to discharge home Status: Acute (2) Allergic rhinitis Status: Acute
[2016-05-30] MEDS: Azithromycin 500 MG in Sodium Chloride 0.9% 250 ML IVPB SCH (10:54)
[2016-05-30] MEDS: Fluticasone-Salmeterol 250-50mcg Diskus INH SCH (13:22)
[2016-05-30 16:48] VITALS: BP 130/84; PULSE 82; TEMP 97.9; O2SAT 93
--- NOTE | 2016-05-30 23:20 | CP.PCM.DIS ---
Provider - Provider Date of Admission: 05/27/16 17:41 Attending physician: Chris Shafer Jr, MD Time Spent in preparation of Discharge (in minutes): 34 Hospital Course - Lab Results Lab Results: Micro Results 05/29/16 06:39 Urine,Clean Catch Urine Culture - Final Gram Negative Joe Most Recent Lab Values WBC 11.7 K/uL (4.8-10.8) H 05/30/16 06:59 RBC 4.70 Mil/uL (3.80-5.20) 05/30/16 06:59 Hgb 13.1 g/dL (11.0-16.0) 05/30/16 06:59 Hct 40.8 % (34.0-47.0) 05/30/16 06:59 MCV 86.8 fL (81.0-99.0) 05/30/16 06:59 MCH 27.9 pg (27.0-31.0) 05/30/16 06:59 MCHC 32.1 g/dL (33.0-37.0) L 05/30/16 06:59 RDW 15.2 % (11.5-14.5) H 05/30/16 06:59 Plt Count 214 K/uL (130-400) 05/30/16 06:59 MPV 9.2 fL (7.2-11.7) 05/30/16 06:59 Neut % (Auto) 70.5 % (50.0-75.0) 05/30/16 06:59 Lymph % (Auto) 22.4 % (20.0-40.0) 05/30/16 06:59 [place] % (Auto) 6.9 % (0.0-10.0) 05/30/16 06:59 Eos % (Auto) 0.0 % (0.0-4.0) 05/30/16 06:59 Baso % (Auto) 0.2 % (0.0-2.0) 05/30/16 06:59 Neut # 8.3 K/uL (1.8-7.0) H 05/30/16 06:59 Lymph # 2.6 K/uL (1.0-4.3) 05/30/16 06:59 [place] # 0.8 K/uL (0.0-0.8) 05/30/16 06:59 Eos # 0.0 K/uL (0.0-0.7) 05/30/16 06:59 Baso # 0.0 K/uL (0.0-0.2) 05/30/16 06:59 APTT 28 SECONDS (21-34) 05/28/16 07:10 Sodium 136 mmol/L (132-148) 05/30/16 06:59 Potassium 4.2 mmol/L (3.6-5.2) 05/30/16 06:59 Chloride 104 mmol/L (98-107) 05/30/16 06:59 Carbon Dioxide 23 mmol/L (22-30) 05/30/16 06:59 Anion Gap 13 (10-20) 05/30/16 06:59 BUN 13 mg/dL (7-17) 05/30/16 06:59 Creatinine 0.6 MG/DL (0.7-1.2) L 05/30/16 06:59 Est GFR ( Amer) > 60 05/30/16 06:59 Est GFR (Non-Af Amer) > 60 05/30/16 06:59 Random Glucose 151 mg/dL (65-105) H 05/30/16 06:59 Calcium 9.2 mg/dl (8.6-10.4) 05/30/16 06:59 Phosphorus 2.7 mg/dL (2.5-4.5) 05/30/16 06:59 Magnesium 2.3 mg/dL (1.6-2.3) 05/30/16 06:59 Total Bilirubin 0.4 mg/dL (0.2-1.3) 05/30/16 06:59 AST 14 U/L (14-36) 05/30/16 06:59 ALT 22 U/L (9-52) 05/30/16 06:59 Alkaline Phosphatase 70 U/L (38-126) 05/30/16 06:59 Total Protein 7.0 g/dL (6.3-8.3) 05/30/16 06:59 Albumin 3.7 g/dL (3.5-5.0) 05/30/16 06:59 Globulin 3.3 gm/dL (2.2-3.9) 05/30/16 06:59 Albumin/Globulin Ratio 1.1 (1.0-2.1) 05/30/16 06:59 Urine Color Yellow (YELLOW) 05/28/16 07:04 Urine Clarity Clear (Clear) 05/28/16 07:04 Urine pH 6.0 (5.0-8.0) 05/28/16 07:04 Ur Specific [place] 1.012 (1.003-1.030) 05/28/16 07:04 Urine Protein Negative mg/dL (NEGATIVE) 05/28/16 07:04 Urine Glucose (UA) 1+ mg/dL (Normal) 05/28/16 07:04 Urine Ketones Negative mg/dL (NEGATIVE) 05/28/16 07:04 Urine Blood 2+ (NEGATIVE) H 05/28/16 07:04 Urine Nitrate Negative (NEGATIVE) 05/28/16 07:04 Urine Bilirubin Negative (NEGATIVE) 05/28/16 07:04 Urine Urobilinogen Normal mg/dL (0.2-1.0) 05/28/16 07:04 Ur Leukocyte Esterase Neg [place]hy/uL (Negative) 05/28/16 07:04 Urine WBC (Auto) 1 /hpf (0-5) 05/28/16 07:04 Urine RBC (Auto) 13 /hpf (0-3) H 05/28/16 07:04 Ur Squamous Epith Cells < 1 /hpf (0-5) 05/28/16 07:04 Urine HCG, Qual Negative (NEGATIVE) 05/28/16 07:04 IgE 61 kU/L (<xt=013) 05/28/16 17:06 Influenza Typ A,B (EIA) Negative for flu a/b (NEGATIVE) 05/27/16 16:06 - Hospital Course Hospital Course: HPI: Pt is a 46 year old female with a PMHx significant for Chronic UTIs admitted to hospital after failing outpatient treatment for acute bronchitis symptoms of cough, fevers, chills x 3 wks. Pt reported flying to [place] approx 1 mo ago, after returning home pt was not feeling well- went to PMD - given Levaquin and Symbicort without relief of symptoms. Pt reported symptoms continued, was referred to ED by PMD for further medical intervention. Pt reported non productive cough, subjective fevers, chills, diaphoresis, headache , hoarse voice, poor appetite, myaglais, urinary incontinence with cough, sinus congestion. Hospital Course: Pt admitted for bronchitis that failed outpatient treatment. Chest CT revealed 6.6 mm nodule on posteromedial aspect of left lung, follow up as per [facility] (please see full report). Pt was afebrile, nontachycardic. PT was started on IV azithromycin and rocephin. Pt was also started on IV steroids and duonebs. Blood cultures were negative. Drawbench Operator , Dr. Torres, was consulted. Pt was started on nebulizer treatments. Influenza test was negative. Pt clinically improved throughout hospital course and stable for discharge. Discharge Exam - Head Exam Head Exam: ATRAUMATIC, NORMOCEPHALIC - Eye Exam Eye Exam: PERRL - ENT Exam ENT Exam: Mucous Membranes Moist. absent: Mucous Membranes Dry - Respiratory Exam Respiratory Exam: Clear to PA & Lateral. absent: Rales, Rhonchi - Cardiovascular Exam Cardiovascular Exam: +S1, +S2. absent: Gallop, Rubs - GI/Abdominal Exam GI & Abdominal Exam: Soft. absent: Distended, Guarding - Extremities Exam Extremities exam: full ROM - Neurological Exam Neurological exam: Alert, Oriented x3 - Psychiatric Exam Psychiatric exam: Normal Affect, Normal Mood - Skin Skin Exam: Normal Color, Warm Discharge Plan - Discharge Medications Prescriptions: Fluticasone/Salmeterol 500/50 [Advair Diskus 500/50] 1 puff IH Q12 #1 puff Methylprednisolone [Medrol Dose Pack (21 tabs)] 4 mg PO DAILY #21 mg Promethazine HCl/Codeine [Prometh-Codein 6.25-10 mg/5 ml] 5 ml PO PRN PRN #1 syrup PRN Reason: Cough Azithromycin [Zithromax Tri-Keen[place]] 500 mg PO DAILY #3 tablet - Follow Up Plan Condition: GOOD Disposition: HOME/ ROUTINE Patient education suggested?: Yes Instructions: Promethazine (By mouth), Azithromycin (By mouth), Methylprednisolone (By mouth), Fluticasone/Salmeterol (By breathing), Promethazine/Codeine (By mouth), Pneumonia (DC), Pneumonia (GEN) Additional Instructions: Please follow up with primary medical doctor, Dr. Shafer, next Thursday, June 06, 2016. Please take newly prescribed medications: azithromycin, advair, and medrol dose pack as prescribed. Please return to the hospital if symptoms worsen or new symptoms arise. Referrals: Chris Shafer Jr., MD [Medical Doctor] -
== END 2016-05-30 19:15 | disposition home or self-care (01) | DRG 203 ==
LOC: C.ER 15:04 → C.9E 17:41 → C.3T 18:46
PROVIDERS: ADMIT Internal Medicine; ATTEND Internal Medicine
DX: J20.9 Acute bronchitis, unspecified (principal); E11.9 Type 2 diabetes mellitus without complications; R32 Unspecified urinary incontinence; J30.9 Allergic rhinitis, unspecified; Z87.440 Personal history of urinary (tract) infections; Z98.51 Tubal ligation status; Z79.899 Other long term (current) drug therapy